=== PATIENT | male | born 1960 | race Caucasian/White ===

== ENCOUNTER 2024-04-25 06:46 | Emergency (ER) | payer BC, SELFPAY ==
[2024-04-25 07:09] VITALS: BP 112/68
[2024-04-25 09:14] LABS: % Basophils 0.4 % (0-2); % Eosinophils 1.4 % (0-6); % Immature Granulocytes 0.2 % (0-0.5); % Lymphocytes 20.4 % (20.5-51.1); % Neutrophils 72.6 % (42.2-75.2); Absolute Eosinophils 0.1 10^3/uL (0-0.7); Absolute Lymphocytes 1.8 10^3/uL (1.2-3.4); Absolute Monocytes 0.4 10^3/uL (0.1-0.6); Absolute Neutrophils 6.2 10^3/uL (1.4-6.5); Hematocrit 35.6 % (39.0-52.0); Hemoglobin 12.4 g/dL (13.0-18.0); Mean Corp Hgb Conc. 34.8 g/dL (33.0-37.0); Mean Corpuscular Hgb 26.6 pg (27.0-31.0); Mean Corpuscular Volume 76.2 fL (80.0-94.0); Mean Platelet Volume 9.9 fL (7.4-10.4); Nucleated Red Blood Cells % 0 % (-); Platelet Count 182 10^3/uL (130-400); Red Blood Cell Count 4.67 10^6/uL (4.70-6.10); Red Cell Dist. Width 14.4 % (11.5-14.5); White Blood Cell Count 8.6 10^3/uL (4.8-10.8)
--- NOTE | 2024-04-25 09:25 | ED.GENMED ---
History of Present Illness
General
Chief Complaint: Anxiety
Source: patient and spouse
Exam Limitations: none
Time Seen by Provider: 04/25/24 08:03
Nursing documentation reviewed up to this point in time: agreed with
History of Present Illness
History of Present Illness:
Patient is a 63-year-old male with a history of PTSD as well as anxiety and depression who presents with increasing anxiety and depression from both work, life as he is going through divorce and exacerbation of underlying symptoms. This been going
on for some time. Patient is hoping for some sort of outpatient therapy. Patient does have a psychiatrist whom he sees. Patient states he is compliant with his medication. Patient's not eating well and has lost weight. Patient's sleep has been
disturbed. Patient is not using any intoxicants. Patient denies alcohol or marijuana. Patient has been sober for 40 years. Patient denies any fever or chills, upper respiratory symptoms, GI or symptoms. Patient denies shortness of breath or
chest pain. 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 Patient also has a history of kidney failure of unknown
etiology. No suicidal ideation
Past History
Past History
ED Past Medical History: GERD, HTN, NIDDM, Renal failure, Psychiatric and Other (Crohn's disease)
Social History
Tobacco: Non-smoker
Alcohol: None
Drug: None
Review of Systems
Review of Systems
All Other Systems: ROS reviewed and negative except as documented in HPI and ROS
Constitutional: Reports weight loss, fatigue and sleep disturbance; Denies fever or chills
EENT: Reports no symptoms
Respiratory: Reports no symptoms
Cardiac: Reports no symptoms
ABD/GI: Reports no symptoms
: Reports no symptoms
Musculoskeletal: Reports no symptoms
Skin: Reports no symptoms
Neurological: Reports no symptoms
Hematologic/Lymphatic: Reports no symptoms
Psychiatric: Reports depression and anxiety; Denies suicidal
Phy Exam
Physical Exam
Physical Exam:
Physical Exam
General: No apparent distress, alert and appropriate, well nourished, well hydrated
HENT: Normocephalic, supple
Eyes: Clear sclera, conjuctiva without injection
Lungs: No respiratory distress, no stridor
Neuro: Alert and oriented x 3, CN II - XII intact, no motor focality, no cerebellar dysfunction
Skin: no rash
Psychiatric: well kept. interactive and cooperative. Depressed
Extremities: No cyanosis
Course
Orders/Labs/Results
Orders:
Orders
04/25/24 09:06
Alcohol Urgent
Complete Blood Count/With Diff Urgent
Comprehensive Metabolic Panel Urgent
TSH Reflex To Free T4 Urgent
Abnormal Lab Results
04/25/24
09:06
RBC 4.67 L 10^6/uL
(4.70-6.10)
Hgb 12.4 L g/dL
(13.0-18.0)
Hct 35.6 L %
(39.0-52.0)
MCV 76.2 L fL
(80.0-94.0)
MCH 26.6 L pg
(27.0-31.0)
Lymphocytes % 20.4 L %
(20.5-51.1)
Potassium 3.3 L mmol/L
(3.5-5.1)
Glucose 137 H mg/dl
(70-99)
04/25/24 09:06
04/25/24 09:06
Vital Signs
Initial and Last Documented VS:
Initial Vital Signs
Temp Pulse Resp BP Pulse Ox
97.7 F 85 16 112/68 98
04/25/24 07:09 04/25/24 07:09 04/25/24 07:09 04/25/24 07:09 04/25/24 07:09
Last Documented Vital Signs
Temp Pulse Resp BP Pulse Ox
97.7 F 85 16 112/68 98
04/25/24 07:09 04/25/24 07:09 04/25/24 07:09 04/25/24 07:09 04/25/24 07:09
*Radiology
Radiology exam reviewed: other (na)
*Pulse Oximetry
Patient hypoxic: no
*EKG
Interpreted by ED Provider?: NA
*Linux Admin Interpretation
Rate: Linux Admin- N/A
*Critical Care Note
Total Time (30-74mins, 75-104mins- exclusive of procedures): Not Applicable
ED Attending Note
-
Portions of this chart may have been created with voice recognition software.� Occasional wrong word or��sound alike� substitutions may have occurred due to the inherent limitations of voice recognition software.
Discharge Plan
Departure
Patient Disposition: Home (Routine Discharge)
Date of Disposition: 04/25/24
Time of Disposition: 09:33
Patient with high blood pressure during this ER visit?: No
Condition: Fair
Covid-19: Not Applicable
Discharge Problem:
Anxiety and depression, Hypokalemia
Instructions: Depression, Adult (DC), Anxiety, Adult (DC)
Prescriptions:
New
potassium chloride 20 mEq tablet,ER particles/crystals
20 meq PO DAILY Qty: 30 0RF
Referrals:
Luke Hussein CRNP [Family Provider] - Follow up in 5-7 days
Activity Restrictions/Additional Instructions:
Follow instructions by Crisis
Interventions
Interventions:
*Risk Screen - Suicide Last Done: 04/25/24 06:47
*General Assessment Last Done: 04/25/24 08:50
*Neglect/Abuse Screening Last Done: 04/25/24 07:09
ED- Fall Risk Assessment Last Done: 04/25/24 08:50
*ED COVID-19 Vaccine History Last Done: 04/25/24 08:50
ED-Psychological Assessment Last Done: 04/25/24 08:50
Discharge Date and Time
Print Language: CYPRIOT
[2024-04-25 09:31] LABS: ALT (SGPT) 22 U/L (0-50); AST (SGOT) 21 U/L (17-59); Albumin 4.7 g/dl (3.5-5.0); Alkaline Phosphatase 47 U/L (38-126); Blood Urea Nitrogen 13 mg/dl (9-20); Calcium 9.8 mg/dl (8.4-10.2); Carbon Dioxide 22 mmol/L (22-30); Chloride 106 mmol/L (98-107); Glucose 137 mg/dl (70-99); Potassium 3.3 mmol/L (3.5-5.1); Sodium 144 mmol/L (135-145); Total Bilirubin 1.1 mg/dl (0.2-1.3); Total Protein 7.4 g/dl (6.3-8.2); eGFR > 60.00
[2024-04-25 09:33] LABS: Alcohol None Detected
[2024-04-25 10:02] LABS: TSH Reflex To Free T4 1.29 uIU/ml (0.47-4.68)
[2024-04-25 10:04] VITALS: BP 114/65
== END 2024-04-25 10:57 | disposition home or self-care (01) ==
LOC: EMR 06:46
PROVIDERS: EMERGENCY PHYSICIAN Emergency Medicine; FAMILY PHYSICIAN Nurse Practitioner Adult Health
DX: F41.9 Anxiety disorder, unspecified (principal); F32.A Depression, unspecified; E87.6 Hypokalemia; I10 Essential (primary) hypertension; E11.9 Type 2 diabetes mellitus without complications; K21.9 Gastro-esophageal reflux disease without esophagitis
CPT/HCPCS: 99283; 80053; 82077; 84443; 85025

== ENCOUNTER 2024-07-19 06:25 | Day surgery (SDC) | payer BC, SELFPAY ==
[2024-07-19 07:14] LABS: Glucose - Point of Care 171 mg/dl (70-99)
== END 2024-07-19 09:27 | disposition home or self-care (01) ==
LOC: GI 06:25
PROVIDERS: ATTENDING PHYSICIAN Internal Medicine
DX: K50.012 Crohn's disease of small intestine with intestinal obstruction (principal); D12.5 Benign neoplasm of sigmoid colon; K55.20 Angiodysplasia of colon without hemorrhage; D17.5 Benign lipomatous neoplasm of intra-abdominal organs; K57.30 Diverticulosis of large intestine without perforation or abscess without bleeding; K64.8 Other hemorrhoids; Z98.0 Intestinal bypass and anastomosis status
CPT/HCPCS: 45385; 45380; 88305; 82962